=== PATIENT | male | born 1950 | race African-American/Black ===

== ENCOUNTER 2018-08-17 11:27 | Inpatient (IN) | payer OTHER ==
[2018-08-17 11:38] VITALS: BMI 22.4
--- NOTE | 2018-08-17 12:25 | PDOC ---
History of Present Illness - General Chief Complaint: Dialysis Shunt Problem Stated Complaint: SENT BY PCP Time Seen by Provider: 08/17/18 12:00 History Source: Patient Exam Limitations: No Limitations - History of Present Illness Initial Comments: 08/17/18 12:39 68 y/o male presents to the ED for evaluation of occluded LAVF. pt was due for HD today but went to Dr. thomas's office 1st where the ultrasound showed an occluded fistula. Pt states last HD was Friday and does urinate. pt has no complaints presently. Pt was sent to the ED by William for either a thrombectomy or a permacath placement Timing/Duration: unsure Associated Symptoms: reports: denies symptoms Past History - Travel Traveled outside of the country in the last 30 days: No Close contact w/someone who was outside of country & ill: No - Past Medical History Allergies/Adverse Reactions: Allergies Allergy/AdvReac Type Severity Reaction Status Date / Time No Known Allergies Allergy Verified 08/17/18 11:33 COPD: No Dialysis: Yes (ESRD (M,W,F)) HTN: Yes - Immunization History Immunization Up to Date: Yes - Suicide/Smoking/Psychosocial Hx Smoking History: Never smoked Information on smoking cessation initiated: No Hx Alcohol Use: No Drug/Substance Use Hx: No Patient Lives Alone: No Lives with/in: spouse/SO Review of Systems - Review of Systems Able to Perform ROS?: No Is the patient limited Swazi proficient: No Constitutional: No: Symptoms Reported HEENTM: No: Symptoms Reported Respiratory: No: Symptoms reported Cardiac (ROS): No: Symptoms Reported ABD/GI: No: Symptoms Reported : No: Symptoms Reported Musculoskeletal: No: Symptoms Reported Integumentary: Yes: Other (occluded left avf) Neurological: No: Symptoms reported Endocrine: No: Symptoms Reported Hematologic/Lymphatic: Yes: See HPI *Physical Exam - Vital Signs Last Vital Signs Temp Pulse Resp BP Pulse Ox 98.1 F 85 18 178/87 H 100 08/17/18 11:33 08/17/18 11:33 08/17/18 11:33 08/17/18 11:33 08/17/18 11:33 - Physical Exam General Appearance: Yes: Nourished, Appropriately Dressed. No: Apparent Distress HEENT: positive: EOMI, CARLOTTA, TMs Normal, Pharynx Normal. negative: Pale Conjunctivae Neck: positive: Supple Respiratory/Chest: positive: Lungs Clear, Normal Breath Sounds. negative: Respiratory Distress, Accessory Muscle Use Cardiovascular: positive: Regular Rhythm, Regular Rate. negative: Murmur Gastrointestinal/Abdominal: positive: Soft. negative: Tenderness Extremity: positive: Normal Capillary Refill, Normal Range of Motion. negative : Normal Inspection (noted mild diffuse edema over left inner forearm and incision with sutures to center. Left AVF to lower left bicep palpable thrill) Integumentary: positive: Normal Color, Warm, Moist Neurologic: positive: Motor Strength 5/5 (ambulatory) ED Treatment Course - LABORATORY CBC & Chemistry Diagram: 08/17/18 12:12 08/17/18 12:37 Medical Decision Making - Medical Decision Making 08/17/18 12:31 CC: occluded LAVF, sent by william for procedure. last HD friday, due today , pt otherwise asymptomatic. recently clotted a few ago and had a sx procedure to left forearm and was functioning until today Exam: + thrill to LAVF, incision to Left FA w/ mild edeam, no increased warmth or erythema Plan: labs, npo, contact william 08/17/18 13:02 Pt seen by vasc surgeon, william and will be placed on schedule for open thrombectomy vs permacath. Admitted to him Laboratory Tests 08/17/18 08/17/18 12:12 12:37 Hgb 9.5 L Hct 28.7 L PT with INR 12.60 INR 1.07 *DC/Admit/Observation/Transfer Diagnosis at time of Disposition: AV fistula occlusion - Discharge Dispostion Decision to Admit order: Yes - Referrals - Patient Instructions - Post Discharge Activity
[2018-08-17 13:08] LABS: BASO % 0.6 % (0-2.0); EOS % 3.7 % (0-4.5); HEMATOCRIT 28.7 % (35.4-49); HEMOGLOBIN 9.5 GM/dL (11.7-16.9); LYMPH % 22.1 % (8-40); MCHC 33.1 g/dl (32.0-35.9); MEAN CELL VOLUME 93.7 fl (80-96); MEAN PLT VOLUME 8.7 fl (7.5-11.1); MONO % 10.1 % (3.8-10.2); NEUT % 63.5 % (42.8-82.8); PLATELET COUNT 141 K/MM3 (134-434); RBC 3.06 M/mm3 (4.00-5.60); RDW 13.3 % (11.9-15.9)
--- NOTE | 2018-08-17 13:16 | HP ---
Satellite H - Chief Complaint History of Present Illness: 68 year old man ESRD on HD with left forearm fistula which is thrombosed. He had an outpatient procedure last week in the [facility] but access clotted again. History Source: Patient Limitations to Obtaining History: No Limitations - Past Medical History Allergies/Adverse Reactions: Allergies Allergy/AdvReac Type Severity Reaction Status Date / Time No Known Allergies Allergy Verified 08/17/18 11:33 Cardiovascular: Yes: HTN Renal/: Yes: Renal Failure, Hemodialysis - Current Medications Current Medications: Home Medications Medication Instructions Recorded Unobtainable 08/17/18 [facility] Physical Exam - Physical Examination Vital Signs: Vital Signs Period Temp Pulse Resp BP Sys/Thakur Pulse Ox Last 24 Hr 98.1 F 85 18 178/87 100 General Appearance: Well Nourished, Well Developed ENT: Clear Lung: Clear to auscultation Heart: Regular rate & rhythm Breasts: Discharge from Nipple Extremities: Other (Left arm fistula no thrill or bruit.) Satellite Impression/Plan - Impression/Plan Impression: Failed AV access. Operative Procedure: Attempt open thrombectomy. Possible Permacath placement.
[2018-08-17 13:29] LABS: INR 1.07 (0.83-1.09); PROTHROMBIN TIME (PATIENT) 12.6 SEC (9.7-13.0)
[2018-08-17 13:50] LABS: ALBUMIN 3.3 g/dl (3.4-5.0); ALK PHOS 238 U/L (45-117); ANION GAP 8 MMOL/L (8-16); BILIRUBIN,TOTAL 0.5 mg/dL (0.2-1); BLOOD UREA NITROGEN 67 mg/dL (7-18); CALCIUM 9.2 mg/dL (8.5-10.1); CHLORIDE 99 mmol/L (98-107); CO2 29 mmol/L (21-32); GLUCOSE,RANDOM 75 mg/dL (74-106); POTASSIUM 5.1 mmol/L (3.5-5.1); SGOT/AST 7 U/L (15-37); SGPT/ALT 9 U/L (13-61); SODIUM 136 mmol/L (136-145); TOT PROT 7.4 g/dl (6.4-8.2)
[2018-08-17 14:54] LABS: CREATININE 10.9 mg/dL (0.55-1.3)
[2018-08-17] MEDS ORDERED: ONDANSETRON 4 MG/2 ML VIAL IVPUSH PRN ×2 (16:12→22:32)
[2018-08-17] MEDS ORDERED: LABETALOL HCL 5 MG/1 ML (100MG/20 ML VIAL) IVPUSH ONE (16:12)
[2018-08-17] MEDS ORDERED: PROMETHAZINE HCL 25 MG/1 ML VIAL IVPUSH PRN ×2 (16:12→22:32)
[2018-08-17] MEDS ORDERED: SODIUM CHLORIDE 1,000 ML IV SCH ×3 (16:15→22:32)
[2018-08-17] MEDS ORDERED: PROPOFOL 20 ML ONE ×4 (16:19→18:14)
[2018-08-17] MEDS ORDERED: MIDAZOLAM HCL 2 MG/2 ML SINGLE DOSE VIAL ONE (16:19)
[2018-08-17] MEDS ORDERED: LIDOCAINE HCL 1%, 10 MG/ML (20ML VIAL) ONE (16:25)
[2018-08-17] MEDS ORDERED: LIDOCAINE HCL/PF 2% SDV 5ML VIAL ONE (16:30)
[2018-08-17] MEDS ORDERED: ceFAZolin SODIUM 1 GM VIAL ONE (16:31)
[2018-08-17] MEDS ORDERED: SODIUM CHLORIDE 0.9% P/F 10 ML VIAL IJ ONE (16:31)
[2018-08-17] MEDS ORDERED: HEPARIN NA (PORCINE) 5,000 UNITS/ML 1ML VIAL ONE ×2 (17:24→17:35)
[2018-08-17] MEDS ORDERED: LIDOCAINE HCL 1%, 10 MG/ML (20ML VIAL) INF ONE (18:18)
--- NOTE | 2018-08-17 19:13 | OP ---
Operative Note - Note: Operative Date: 08/17/18 Pre-Operative Diagnosis: Thrombosed AV graft left arm Operation: Open thrombectomy left arm AV graft. Placement permacath. venogram left arm and right jugular/innominate vein Findings: Thrombosed right arm AV graft with multiple stents in outflow vein Chronic central vein occlusion right innominate, jugular and subclavian. Implants: 23 cm Permacath Post-Operative Diagnosis: Same as Pre-op Surgeon: Arsalan Bowen Anesthesiologist/[facility] [place]: Medardo Patel Anesthesia: Fractional Estimated Blood Loss (mls): 50
[2018-08-17] MEDS ORDERED: ACETAMINOPHEN WITH CODEINE 300MG/30MG TABLET PO PRN (19:20)
[2018-08-17] MEDS: CARVEDILOL 12.5 MG TABLET (FP) PO SCH (22:44)
--- NOTE | 2018-08-18 07:54 | PN ---
Progress Note (short form) - Note Progress Note: surgery POD #1 Open thrombectomy left arm AV graft. Placement permacath. venogram left arm and right jugular/innominalte vein. Intraop findings: Thrombosed right arm AV graft with multiple stents in outflow vein Chronic central vein occlusion right innominate, jugular and subclavian. Patient seen and examined at bedside with no complaints. Patient is tolerating his diet and denies nay CP, SOB, N/V, fever or chills. Vital Signs Temp 98.3 F 08/18/18 07:10 Pulse 88 08/18/18 07:10 Resp 20 08/18/18 07:10 BP 179/93 H 08/18/18 07:10 Pulse Ox 97 08/18/18 05:00 Intake & Output 08/17/18 08/17/18 08/18/18 11:59 23:59 11:59 Intake Total 350 Output Total 25 Balance 325 Weight 156 lb 8.451 oz Intake: IV 350 Output: Estimated Blood Loss 25 Other: Voiding Method Urinal Urinal Height 5 ft 10 in Body Mass Index (BMI) 22.4 Weight Measurement Method Est/Stated by Patient CBC, BMP 08/17/18 12:12 08/17/18 12:37 PE: A&Ox3, NAD Unlabored resp on RA. Right chest wall permacath placed secured in good position with no active bleeding, surrounding tissue intact with no tracking erythema or edema. Left arm dressing c/d/i with surrounding tissue intact, some local edema, no evidence of d/c or active bleeding. no palpable thrill. no radial or ulnar pulse palpated, hand and fingers warm and well perfused, moving left wrist and digits without limitation or pain. <Sarahy Julian - Last Filed: 08/18/18 07:57> - Note Progress Note: Mr Lewis will need new fistula in left arm. He has a history of left sided central vein occlusion and will need to have venogram before new access is created. I will schedule outpatient venogram. <Arsalan Bowen - Last Filed: 08/18/18 12:42> Problem List - Problems (1) AV fistula occlusion Assessment/Plan: POD #1 attempted thrombectomy of left AVF, and Permacath placement, doing well. 1) Dialysis per renal via Permacath 2) OOB as tolerated 3) plan for permanent access pending Code(s): T82.898A - [facility] COMPLICATION OF VASCULAR PROSTH DEV/KALEY, INIT <Sarahy Julian - Last Filed: 08/18/18 07:57>
--- NOTE | 2018-08-18 08:01 | PN ---
Progress Note (short form) - Note Progress Note: RENAL 68 YEAR OLD WITH ESRD HTN DM HAS HAD ISSUES WITH CENTRAL THROMBOSIS HENCE LEFT ARM ACCESS KEEPS CLOTTING WAS ON PLAVIX FAILED THROMBECTOMY S/P RT PERMCATH HDTODAY ATMK11OC 3.5 HR K2 CA2.5 TARGET 2.5 PROCRIT 5000 DC HOME IF NEW ACCESS CANT BE DONE IN THIS ADMISSION MEDS REVIEWED DC FLUIDS
[2018-08-18] MEDS: SEVELAMER CARBONATE 800 MG TAB (FP) PO SCH ×3 (08:37→17:44)
[2018-08-18] MEDS ORDERED: EPOETIN ALFA 3,000 UNIT/1 ML ML SQ ONE (10:00)
[2018-08-18] MEDS ORDERED: EPOETIN ALFA 2,000 UNIT/1 ML VIAL SQ ONE (10:00)
[2018-08-18] MEDS ORDERED: PT OWN MED DRAWER 7, Y5N ONE (11:28)
[2018-08-18] MEDS: CARVEDILOL 12.5 MG TABLET (FP) PO SCH (14:15)
--- NOTE | 2018-08-18 14:32 | OP ---
DATE OF OPERATION: 08/17/2018 SURGEON: Arsalan Pate MD PROCEDURES: Open thrombectomy. Left arm arteriovenous graft. Venogram of the left upper extremity. Placement of Perma-Cath with venogram of the right jugular and subclavian veins. PREOPERATIVE DIAGNOSIS: Thrombosed arteriovenous graft, left arm. POSTOPERATIVE DIAGNOSIS: Thrombosed arteriovenous graft, left arm, with central vein occlusion of the right jugular and innominate vein. ANESTHESIA: Fractional. ANESTHESIOLOGIST: Medardo Patel MD OPERATIVE FINDINGS: There was a composite graft fistula of the left forearm with inflow from the brachial artery and outflow via the cephalic vein. The entire access was clotted. There was a stent extending from the distal forearm near the wrist back to the antecubital fossa which was kinked distally at the site of a sharp turn in the access. The proximal cephalic vein in the upper arm was patent and normal caliber. The right internal jugular vein was occluded. Branches of the vein were patent. Venography revealed occlusion of the vein with no reconstitution seen in the neck or chest. The subclavian vein also appeared to be occluded. OPERATIVE PROCEDURE: Following routine patient identification with side and site verification, intravenous sedation was established. The left arm was prepped with ChloraPrep. A timeout was performed. Lidocaine 1% was infiltrated in the proximal forearm over the palpable graft. Skin incision was made and carried through subcutaneous tissues using cautery for hemostasis. The graft was mobilized and secured with vessel loops. A transverse incision was made in the graft. A number-3 Shanice catheter was passed proximally and withdrawing with removal of thrombus and cheondoism of arterial flow. The graft was filled with heparin solution and was occluded with a vessel loop. Attempt to perform thrombectomy of the venous portion of the graft was unsuccessful due to the multiple stents in the outflow of the graft and the severe angulation distally. Due to the presence of continuous stenting from the graft venous anastomosis distally to the antecubital fossa, there was no access to perform any additional thrombectomy. Wire and catheter were passed through the occluded portion of the graft into the cephalic vein above the elbow and venography was performed which showed the vein was patent and would be acceptable for a new AV fistula. Based on this finding and the poor function of the current access, decision was made to terminate the procedure and plan a new AV access in the left arm. Therefore, the incision in the graft was closed with running suture of 6-0 Prolene and the proximal clamp removed. The wound was closed with 3-0 Vicryl subcutaneous sutures and skin tala. A sterile dressing was applied. The patient was then re-prepped and draped in the right neck and chest. Using real-time duplex imaging, the right neck was explored and there was evidence of old, partially-thrombosed jugular vein with multiple external venous branches. Lidocaine was infiltrated in the skin and a Micropuncture needle used to cannulate one of these large branches. A flexible wire was passed proximally and the needle exchanged for a 5-Peruvian catheter. Venography through the catheter revealed occlusion of the jugular vein at the thoracic outlet. A 7-Peruvian sheath was placed over a wire into the vein and then attempts to recannulate the occluded portion were made with wires and catheters without success. The sheath was removed and pressure applied to the neck until bleeding ceased. Under ultrasound guidance, the right subclavian vein was identified distally then was cannulated with a Micropuncture needle. Attempts to pass a wire proximally also met with resistance and contrast injection showed that this vein was occluded, as well. Using a Micropuncture needle, the subclavicular venous branches were cannulated and then a wire was able to be passed proximally into the superior vena cava. The 5-Peruvian catheter was placed over the wire. The wire was then exchanged for an angled-tip wire which was advanced through the right atrium into the inferior vena cava. With the aid of a catheter, a stiff wire was then exchanged. Additional Xylocaine was infiltrated in the chest wall and a stab wound made. A Perma-Cath was then advanced from chest incision to the infraclavicular site. The tract around the wire was dilated. Perma-Cath was then advanced over the wire through an introducer and the tip position in the right atrium. The introducer was peeled away, leaving the catheter in place. Each lumen was aspirated for blood and flushed with saline and heparin solution. The infraclavicular incision was closed with a subcutaneous suture of 3-0 Vicryl and the catheter was sutured to the skin at the exit site with 3-0 nylon. Sterile dressings were applied and the patient was taken to the recovery room for a chest x-ray. ARSALAN PATE M.D. [id number]
[2018-08-18 14:47] VITALS: PULSE 99
[2018-08-18 17:03] VITALS: BP 150/74; TEMP 98.1
[2018-08-19 13:13] LABS: HBSAG SCREEN Negative (Negative); HEP A AB, IGM Negative (Negative); HEP B CORE AB, TOT Negative (Negative)
== END 2018-08-18 18:48 | disposition home or self-care (01) | DRG 252 ==
LOC: JER 11:27 → JASU-SURG 12:25 → JASUSAT 12:25 → JSAMEDAYSX 19:16 → J8W 22:27
PROVIDERS: ADMIT Surgery; ATTEND Surgery
PROC: 05H533Z Insertion of Infusion Device into Right Subclavian Vein, Percutaneous Approach (ICD-10-PCS; 2018-08-17)
PROC: 02H633Z Insertion of Infusion Device into Right Atrium, Percutaneous Approach (ICD-10-PCS; 2018-08-17)
PROC: 03CY0ZZ Extirpation of Matter from Upper Artery, Open Approach (ICD-10-PCS; principal; 2018-08-17 15:15)
PROC: 057F0ZZ Dilation of Left Cephalic Vein, Open Approach (ICD-10-PCS; 2018-08-17 15:15)
DX: T82.868A Thrombosis due to vascular prosthetic devices, implants and grafts, initial encounter (principal); N18.6 End stage renal disease; I12.0 Hypertensive chronic kidney disease with stage 5 chronic kidney disease or end stage renal disease; Y83.8 Other surgical procedures as the cause of abnormal reaction of the patient, or of later complication, without mention of misadventure at the time of the procedure; Z99.2 Dependence on renal dialysis
CPT/HCPCS: 36415; 71045-TC-FY; 76000-TC-FY; 80053; 85025; 85610; 86704; 86706; 86708; 86803; 86850; 86900; 86901; 87340; 87389; 94760; 99284-25; J0885; J1644; J7030

== ENCOUNTER 2024-04-08 03:45 | Day surgery (SDC) | payer OTHER ==
[2024-04-08] MEDS ORDERED: LIDOCAINE HCL/PF 1% SDV 5ML VIAL ONE (07:45)
[2024-04-08 09:35] VITALS: RESP 16
[2024-04-08 09:38] VITALS: BMI 22.9
[2024-04-08 10:22] LABS: INR 1.22 (0.83-1.09); PROTHROMBIN TIME (PATIENT) 13.7 SEC (9.7-13.0)
[2024-04-08] MEDS ORDERED: MIDAZOLAM HCL 2 MG/2 ML SINGLE DOSE VIAL ONE (11:46)
[2024-04-08] MEDS: ceFAZolin SODIUM 1 GM VIAL IVPB ONE (11:50)
[2024-04-08] MEDS ORDERED: SUCCINYLCHOLINE CHLORIDE 200 MG/10 ML SYRINGE ONE (12:02)
[2024-04-08] MEDS ORDERED: PROPOFOL 20 ML ONE (12:02)
[2024-04-08] MEDS ORDERED: ROCURONIUM BROMIDE 50 MG/5 ML SYRINGE ONE (12:02)
[2024-04-08] MEDS: LIDOCAINE HCL 1%, 10 MG/ML (20ML VIAL) NR ONE (12:20)
[2024-04-08 13:11] VITALS: TEMP 97.7
[2024-04-08] MEDS ORDERED: ACETAMINOPHEN 325 MG TABLET (FP) ONE (13:28)
[2024-04-08] MEDS: ACETAMINOPHEN 325 MG TABLET (FP) PO PRN (13:29)
[2024-04-08 15:08] VITALS: BP 126/74; PULSE 92
== END 2024-04-08 15:11 | disposition home or self-care (01) ==
LOC: JASU-SURG 03:45
PROVIDERS: ATTEND Surgery
PROC: 037Y3DZ Dilation of Upper Artery with Intraluminal Device, Percutaneous Approach (ICD-10-PCS; principal; 2024-04-08 11:00)
DX: T82.511A Breakdown (mechanical) of surgically created arteriovenous shunt, initial encounter (principal); I12.0 Hypertensive chronic kidney disease with stage 5 chronic kidney disease or end stage renal disease; N18.6 End stage renal disease; Z99.2 Dependence on renal dialysis
CPT/HCPCS: 36903; C1874; 36415; 76000-TC-FY; 84132; 85610; C1769

== ENCOUNTER 2024-12-29 13:06 | Inpatient (IN) | payer OTHER ==
[2024-12-29] MEDS ORDERED: ACETAMINOPHEN INJECTION 100 ML ONE (14:14)
[2024-12-29] MEDS: ACETAMINOPHEN 1000 MG/100 ML BAG IVPB ONE (14:35)
[2024-12-29 14:53] LABS: EOSINOPHIL % 7.1 % (0.8-7.0); MCHC 31.7 g/dl (32.3-36.5); MEAN CELL VOLUME 100.0 fl (79.0-92.2); MEAN PLT VOLUME 11.3 fl (9.4-12.4); MONOCYTE % 9.3 % (5.3-12.2); RDW 13.9 % (12.2-16.6)
[2024-12-29 14:54] LABS: ABSOLUTE IMMATURE GRANULOCYTES 0.01 x10^3/uL (0.0-0.031); BASOPHILS # 0.03 x10^3/uL (0.01-0.08); EOSINOPHILS # 0.30 x10^3/uL (0.04-0.54); MONOCYTE # 0.39 x10^3/uL (0.30-0.82)
[2024-12-29] MEDS ORDERED: MORPHINE SULFATE 2 MG/ML SYRINGE ONE (14:57)
[2024-12-29 15:01] LABS: INR 1.22 (0.83-1.09); PROTHROMBIN TIME (PATIENT) 13.3 SEC (9.7-13.0)
[2024-12-29 15:04] LABS: ACTIVATED PTT 35.3 SECONDS (25.2-36.5)
[2024-12-29 15:14] LABS: GLUCOSE,RANDOM 101 mg/dL (74-106); TOT PROT 7.8 g/dl (6.4-8.2)
[2024-12-29 15:15] LABS: CO2 26 mmol/L (21-32)
[2024-12-29] MEDS: morphine CARPU-JECT 2 MG/1 ML DISP.SYRIN IVPUSH ONE (15:15)
[2024-12-29 15:17] LABS: ALK PHOS 460 U/L (40-150)
[2024-12-29 15:19] LABS: SGPT/ALT 13 U/L (0-55)
[2024-12-29 15:20] LABS: CREATININE 10.43 mg/dL (0.55-1.3); SGOT/AST 19 U/L (5-34)
[2024-12-29] MEDS ORDERED: HYDROmorphone HCL CARPU-JECT 2 MG/1 ML DISP.SYRIN IVPUSH PRN (17:46)
[2024-12-29] MEDS ORDERED: HYDROmorphone HCL CARPU-JECT 2 MG/1 ML DISP.SYRIN ONE (17:50)
[2024-12-29 18:22] LABS: HCV DIAGNOSTIC IN-HOUSE W/RFLX NON-REACTIVE (NONREACTIVE); HIV INTERPRETATION NEGATIVE (NEGATIVE)
[2024-12-29] MEDS: ACETAMINOPHEN 1000 MG/100 ML BAG IVPB PRN (20:55)
[2024-12-30] MEDS: morphine CARPU-JECT 2 MG/1 ML DISP.SYRIN IVPUSH PRN (04:13)
[2024-12-30] MEDS: ACETAMINOPHEN 1000 MG/100 ML BAG IVPB SCH ×2 (08:38→20:22)
[2024-12-30 09:35] LABS: ABSOLUTE IMMATURE GRANULOCYTES 0.01 x10^3/uL (0.0-0.031)
[2024-12-30 09:37] LABS: BASOPHILS # 0.03 x10^3/uL (0.01-0.08); EOSINOPHIL % 3.9 % (0.8-7.0); EOSINOPHILS # 0.19 x10^3/uL (0.04-0.54); IMMATURE PLATELET FRACTION # 3.20 x10^3/uL; MCHC 31.8 g/dl (32.3-36.5); MEAN CELL VOLUME 99.2 fl (79.0-92.2); MEAN PLT VOLUME 10.2 fl (9.4-12.4); MONOCYTE # 0.57 x10^3/uL (0.30-0.82); MONOCYTE % 11.6 % (5.3-12.2); RDW 13.7 % (12.2-16.6)
[2024-12-30 09:52] LABS: GLUCOSE,RANDOM 74 mg/dL (74-106)
[2024-12-30 09:54] LABS: CO2 26 mmol/L (21-32)
[2024-12-30 09:58] LABS: CREATININE 11.43 mg/dL (0.55-1.3)
[2024-12-30] MEDS: POLYETHYLENE GLYCOL (HEALTHYLAX) 3350 17 GM PACKET PO SCH (10:27)
[2024-12-30 10:30] LABS: HEPATITIS B SURF AG NON-MATERN NON-REACTIVE (NONREACTIVE)
[2024-12-30] MEDS: VERAPAMIL HCL 180 MG E.R. TABLET PO SCH (10:33)
[2024-12-30] MEDS ORDERED: LIDOCAINE HCL/PF 2% SDV 5ML VIAL ONE (11:25)
[2024-12-30] MEDS ORDERED: MIDAZOLAM HCL 2 MG/2 ML SINGLE DOSE VIAL ONE (11:25)
[2024-12-30] MEDS ORDERED: PROPOFOL 60 ML ONE (11:25)
[2024-12-30] MEDS ORDERED: ONDANSETRON 4 MG/2 ML VIAL IVPUSH PRN ×3 (12:04→15:10)
[2024-12-30] MEDS ORDERED: LIDOCAINE HCL 1%, 10 MG/ML (20ML VIAL) ONE (12:31)
[2024-12-30] MEDS ORDERED: HEPARIN NA (PORCINE) 5,000 UNITS/ML 1ML VIAL ONE (12:32)
[2024-12-30] MEDS: LIDOCAINE HCL 1%, 10 MG/ML (50 mL VIAL) INF ONE (12:55)
[2024-12-30] MEDS ORDERED: PHENYLEPHRINE HCL 10 MG/1 ML SINGLE DOSE VIAL ONE (13:08)
[2024-12-30] MEDS ORDERED: METOPROLOL TARTRATE 5 MG/5 ML VIAL ONE (13:15)
[2024-12-30] MEDS ORDERED: FLUMAZENIL 0.5 MG/5 ML VIAL ONE (13:26)
[2024-12-30] MEDS ORDERED: NALOXONE HCL 0.4 MG/ML VIAL ONE (13:50)
[2024-12-30] MEDS ORDERED: ACETAMINOPHEN INJECTION 100 ML ONE (14:18)
[2024-12-30] MEDS: ACETAMINOPHEN 1000 MG/100 ML BAG IVPB ONE (14:20)
[2024-12-30] MEDS ORDERED: SODIUM CHLORIDE 250 ML IV PRN (14:23)
[2024-12-30] MEDS: SACUBITRIL/VALSARTAN 24 MG-26 MG TABLET PO SCH (21:34)
[2024-12-30] MEDS: APIXABAN 2.5 MG TABLET PO SCH (21:35)
[2024-12-30] MEDS ORDERED: SODIUM CHLORIDE 250 ML IV STA (21:57)
[2024-12-31] MEDS: MINERAL OIL/PET HY-PHL TOPICAL OINTMENT 454 GM JAR TP SCH (01:37)
[2024-12-31 10:29] LABS: ABSOLUTE IMMATURE GRANULOCYTES 0.03 x10^3/uL (0.0-0.031); BASOPHILS # 0.04 x10^3/uL (0.01-0.08); EOSINOPHIL % 1.4 % (0.8-7.0); EOSINOPHILS # 0.11 x10^3/uL (0.04-0.54); MCHC 30.3 g/dl (32.3-36.5); MEAN CELL VOLUME 103.0 fl (79.0-92.2); MEAN PLT VOLUME 11.9 fl (9.4-12.4); MONOCYTE # 0.79 x10^3/uL (0.30-0.82); MONOCYTE % 9.8 % (5.3-12.2); RDW 14.1 % (12.2-16.6)
[2024-12-31 10:53] LABS: GLUCOSE,RANDOM 79 mg/dL (74-106)
[2024-12-31 10:54] LABS: TOT PROT 7.7 g/dl (6.4-8.2)
[2024-12-31 10:55] LABS: CO2 23 mmol/L (21-32)
[2024-12-31 10:57] LABS: ALK PHOS 441 U/L (40-150)
[2024-12-31 10:59] LABS: SGOT/AST 25 U/L (5-34); SGPT/ALT 12 U/L (0-55)
[2024-12-31 11:00] LABS: CREATININE 8.47 mg/dL (0.55-1.3)
[2024-12-31] MEDS: SODIUM ZIRCONIUM CYCLOSILICATE (LOKELMA) 5 GM PACKET PO SCH (11:00)
[2024-12-31] MEDS: ALLOPURINOL 100 MG TABLET (FP) PO SCH (11:01)
[2024-12-31] MEDS: POLYETHYLENE GLYCOL (HEALTHYLAX) 3350 17 GM PACKET PO SCH (11:01)
[2024-12-31] MEDS: VERAPAMIL HCL 180 MG E.R. TABLET PO SCH (11:01)
[2024-12-31] MEDS ORDERED: SODIUM CHLORIDE 250 ML IV PRN (16:44)
[2024-12-31] MEDS: morphine CARPU-JECT 2 MG/1 ML DISP.SYRIN IVPUSH PRN (23:16)
[2025-01-01 08:40] LABS: ABSOLUTE IMMATURE GRANULOCYTES 0.02 x10^3/uL (0.0-0.031); BASOPHILS # 0.03 x10^3/uL (0.01-0.08); EOSINOPHIL % 4.1 % (0.8-7.0); EOSINOPHILS # 0.23 x10^3/uL (0.04-0.54); MCHC 31.2 g/dl (32.3-36.5); MEAN CELL VOLUME 100.9 fl (79.0-92.2); MEAN PLT VOLUME 12.3 fl (9.4-12.4); MONOCYTE # 0.69 x10^3/uL (0.30-0.82); MONOCYTE % 12.2 % (5.3-12.2); RDW 14.0 % (12.2-16.6)
[2025-01-01 09:02] LABS: GLUCOSE,RANDOM 67 mg/dL (74-106); TOT PROT 6.9 g/dl (6.4-8.2)
[2025-01-01 09:03] LABS: CO2 26 mmol/L (21-32)
[2025-01-01 09:05] LABS: ALK PHOS 397 U/L (40-150)
[2025-01-01 09:07] LABS: SGOT/AST 18 U/L (5-34)
[2025-01-01 09:08] LABS: CREATININE 9.68 mg/dL (0.55-1.3)
[2025-01-01 09:14] LABS: SGPT/ALT < 6 U/L (0-55)
[2025-01-02] MEDS: ACETAMINOPHEN 500 MG TABLET (FP) PO ONE (05:59)
[2025-01-02] MEDS: guaiFENesin/D-METHORPHAN HB 10 ML UNIT-DOSE CUPS PO PRN (21:25)
[2025-01-03] MEDS: LIDOCAINE 5% TOPICAL PATCH TP SCH (10:05)
[2025-01-03] MEDS ORDERED: SODIUM CHLORIDE 250 ML IV PRN (13:20)
[2025-01-03 13:32] LABS: IMMATURE PLATELET FRACTION # 6.70 x10^3/uL; MCHC 31.8 g/dl (32.3-36.5); MEAN CELL VOLUME 99.7 fl (79.0-92.2); MEAN PLT VOLUME 10.9 fl (9.4-12.4); RDW 13.8 % (12.2-16.6)
[2025-01-03] MEDS: POLYETHYLENE GLYCOL (HEALTHYLAX) 3350 17 GM PACKET PO SCH (13:50)
[2025-01-03 13:52] LABS: GLUCOSE,RANDOM 86 mg/dL (74-106)
[2025-01-03 13:53] LABS: TOT PROT 6.9 g/dl (6.4-8.2)
[2025-01-03 13:54] LABS: CO2 29 mmol/L (21-32)
[2025-01-03 13:55] LABS: ALK PHOS 396 U/L (40-150)
[2025-01-03 13:58] LABS: CREATININE 9.24 mg/dL (0.55-1.3); SGOT/AST 15 U/L (5-34)
[2025-01-03 14:37] LABS: SGPT/ALT < 6 U/L (0-55)
[2025-01-03] MEDS: EPOETIN ALFA-EPBX 4,000 UNIT/ML VIAL SQ ONE (15:09)
[2025-01-03] MEDS: HEPARIN NA (PORCINE) 5,000 UNITS/ML 1ML VIAL IVPUSH ONE (15:09)
[2025-01-03] MEDS ORDERED: HEPARIN NA (PORCINE) 5,000 UNITS/ML 1ML VIAL SQ SCH (22:00)
[2025-01-03] MEDS: LIDOCAINE PATCH REMOVAL MC SCH (22:53)
[2025-01-04] MEDS: ACETAMINOPHEN 500 MG TABLET (FP) PO SCH (07:28)
[2025-01-04 10:14] LABS: ABSOLUTE IMMATURE GRANULOCYTES 0.01 x10^3/uL (0.0-0.031); BASOPHILS # 0.02 x10^3/uL (0.01-0.08); MEAN CELL VOLUME 102.6 fl (79.0-92.2); MONOCYTE # 0.44 x10^3/uL (0.30-0.82)
[2025-01-04 10:16] LABS: EOSINOPHIL % 9.0 % (0.8-7.0); EOSINOPHILS # 0.33 x10^3/uL (0.04-0.54); IMMATURE PLATELET FRACTION # 5.70 x10^3/uL; MCHC 31.1 g/dl (32.3-36.5); MEAN PLT VOLUME 11.0 fl (9.4-12.4); MONOCYTE % 12.0 % (5.3-12.2); RDW 13.8 % (12.2-16.6)
[2025-01-04] MEDS: SENNOSIDES 8.6MG TABLET (FP) PO SCH (21:04)
[2025-01-05] MEDS ORDERED: SODIUM CHLORIDE 250 ML IV PRN ×3 (07:45→16:11)
[2025-01-05 09:21] LABS: ABSOLUTE IMMATURE GRANULOCYTES 0.01 x10^3/uL (0.0-0.031); EOSINOPHIL % 9.3 % (0.8-7.0); EOSINOPHILS # 0.33 x10^3/uL (0.04-0.54); MEAN PLT VOLUME 11.9 fl (9.4-12.4)
[2025-01-05 09:23] LABS: BASOPHILS # 0.02 x10^3/uL (0.01-0.08); IMMATURE PLATELET FRACTION # 5.60 x10^3/uL; MCHC 31.5 g/dl (32.3-36.5); MEAN CELL VOLUME 101.5 fl (79.0-92.2); MONOCYTE # 0.41 x10^3/uL (0.30-0.82); MONOCYTE % 11.6 % (5.3-12.2); RDW 13.9 % (12.2-16.6)
[2025-01-05 09:26] LABS: INR 1.16 (0.83-1.09); PROTHROMBIN TIME (PATIENT) 12.8 SEC (9.7-13.0)
[2025-01-05 09:40] LABS: GLUCOSE,RANDOM 92 mg/dL (74-106); TOT PROT 7.0 g/dl (6.4-8.2)
[2025-01-05 09:41] LABS: CO2 29 mmol/L (21-32)
[2025-01-05 09:42] LABS: ALK PHOS 377 U/L (40-150)
[2025-01-05 09:45] LABS: CREATININE 6.23 mg/dL (0.55-1.3); SGOT/AST 16 U/L (5-34); SGPT/ALT < 6 U/L (0-55)
[2025-01-05] MEDS ORDERED: ROPIVACAINE HCL 0.5% 30ML VIAL ONE (12:55)
[2025-01-05] MEDS ORDERED: MIDAZOLAM HCL 2 MG/2 ML SINGLE DOSE VIAL ONE (12:56)
[2025-01-05] MEDS ORDERED: DEXAMETHASONE SOD PHOSPHATE 10 MG/1 ML VIAL ONE (12:59)
[2025-01-05] MEDS ORDERED: PROPOFOL 20 ML ONE (13:25)
[2025-01-05] MEDS ORDERED: METOPROLOL TARTRATE 5 MG/5 ML VIAL ONE (13:45)
[2025-01-05] MEDS ORDERED: ESMOLOL HCL 100,000 MCG/10 ML VIAL ONE (13:46)
[2025-01-05] MEDS ORDERED: LABETALOL HCL 20 MG/4 ML VIAL ONE ×2 (14:11)
[2025-01-05] MEDS ORDERED: guaiFENesin/D-METHORPHAN HB 10 ML UNIT-DOSE CUPS PO PRN (14:22)
[2025-01-05] MEDS ORDERED: morphine CARPU-JECT 2 MG/1 ML DISP.SYRIN IVPUSH PRN ×2 (14:22→16:11)
[2025-01-05] MEDS ORDERED: MAG HYDROX/AL HYDROX/SIMETH 30 ML UNIT-DOSE CUP PO PRN (15:35)
[2025-01-05] MEDS ORDERED: ONDANSETRON 4 MG/2 ML VIAL IVPUSH PRN ×2 (15:35→15:57)
[2025-01-05] MEDS ORDERED: NALOXONE HCL 0.4 MG/ML VIAL ONE ×2 (15:43)
[2025-01-05] MEDS ORDERED: LACTATED RINGERS SOLUTION 1,000 ML IV SCH ×2 (15:45→16:00)
[2025-01-05] MEDS ORDERED: ALBUTEROL SO4 0.083% IH SOL 2.5 MG/3 ML VIAL.NEB. NEB ONE (16:38)
[2025-01-05 16:49] LABS: RDW 14.1 % (12.2-16.6)
[2025-01-05 16:51] LABS: IMMATURE PLATELET FRACTION # 6.30 x10^3/uL; MCHC 30.3 g/dl (32.3-36.5); MEAN CELL VOLUME 104.2 fl (79.0-92.2); MEAN PLT VOLUME 10.5 fl (9.4-12.4)
[2025-01-05 17:18] LABS: GLUCOSE,RANDOM 120.0 mg/dL (74-106)
[2025-01-05 17:19] LABS: CO2 29.0 mmol/L (21-32)
[2025-01-05 17:24] LABS: CREATININE 4.57 mg/dL (0.55-1.3)
[2025-01-05] MEDS: ACETAMINOPHEN 1000 MG/100 ML BAG IVPB ONE (17:39)
[2025-01-05] MEDS ORDERED: ACETAMINOPHEN 500 MG TABLET (FP) PO SCH (18:00)
[2025-01-05] MEDS: CEFAZOLIN SODIUM 2 GM in DEXTROSE 5%-WATER 100 ML IVPB SCH (21:20)
[2025-01-05] MEDS: POLYETHYLENE GLYCOL (HEALTHYLAX) 3350 17 GM PACKET PO SCH (21:21)
[2025-01-05] MEDS: SACUBITRIL/VALSARTAN 24 MG-26 MG TABLET PO SCH (21:21)
[2025-01-05] MEDS: SENNOSIDES/DOCUSATE COMBO (SENNA PLUS) TABLET (UD) PO SCH (21:21)
[2025-01-05] MEDS: LIDOCAINE PATCH REMOVAL MC SCH (21:29)
[2025-01-05] MEDS ORDERED: SACUBITRIL/VALSARTAN 24 MG-26 MG TABLET PO SCH (22:00)
[2025-01-05] MEDS ORDERED: MINERAL OIL/PET HY-PHL TOPICAL OINTMENT 454 GM JAR TP SCH (22:00)
[2025-01-05] MEDS ORDERED: APIXABAN 2.5 MG TABLET PO SCH (22:00)
[2025-01-05] MEDS ORDERED: SENNOSIDES 8.6MG TABLET (FP) PO SCH (22:00)
[2025-01-05] MEDS ORDERED: POLYETHYLENE GLYCOL (HEALTHYLAX) 3350 17 GM PACKET PO SCH (22:00)
[2025-01-05] MEDS ORDERED: LIDOCAINE PATCH REMOVAL MC SCH ×4 (22:00)
[2025-01-05] MEDS: MINERAL OIL/PET HY-PHL TOPICAL OINTMENT 454 GM JAR TP SCH (22:18)
[2025-01-06] MEDS: ACETAMINOPHEN 500 MG TABLET (FP) PO SCH (00:52)
[2025-01-06] MEDS: MELATONIN 5 MG TABLETS PO SCH (02:33)
[2025-01-06] MEDS: guaiFENesin/D-METHORPHAN HB 10 ML UNIT-DOSE CUPS PO PRN (05:40)
[2025-01-06 07:37] LABS: IMMATURE PLATELET FRACTION # 6.60 x10^3/uL; MCHC 31.1 g/dl (32.3-36.5); MEAN CELL VOLUME 102.6 fl (79.0-92.2); MEAN PLT VOLUME 10.8 fl (9.4-12.4); RDW 13.8 % (12.2-16.6)
[2025-01-06] MEDS ORDERED: AMINO ACIDS/PROTEIN HYDROLYS 30 ML LIQUID.PKT PO SCH (08:00)
[2025-01-06 08:14] LABS: GLUCOSE,RANDOM 75 mg/dL (74-106); TOT PROT 6.8 g/dl (6.4-8.2)
[2025-01-06 08:15] LABS: CO2 27 mmol/L (21-32)
[2025-01-06 08:17] LABS: ALK PHOS 372 U/L (40-150)
[2025-01-06 08:19] LABS: SGOT/AST 17 U/L (5-34)
[2025-01-06 08:20] LABS: CREATININE 5.79 mg/dL (0.55-1.3)
[2025-01-06] MEDS: AMINO ACIDS/PROTEIN HYDROLYS 30 ML LIQUID.PKT PO SCH (08:29)
[2025-01-06 08:37] LABS: SGPT/ALT < 6 U/L (0-55)
[2025-01-06] MEDS ORDERED: ASPIRIN COATED 81 MG TABLET.EC PO SCH (10:00)
[2025-01-06] MEDS ORDERED: SODIUM ZIRCONIUM CYCLOSILICATE (LOKELMA) 5 GM PACKET PO SCH (10:00)
[2025-01-06] MEDS ORDERED: ALLOPURINOL 100 MG TABLET (FP) PO SCH (10:00)
[2025-01-06] MEDS ORDERED: LIDOCAINE 5% TOPICAL PATCH TP SCH (10:00)
[2025-01-06] MEDS: SODIUM ZIRCONIUM CYCLOSILICATE (LOKELMA) 5 GM PACKET PO SCH (10:06)
[2025-01-06] MEDS: PANTOPRAZOLE 40 MG TABLET PO SCH (10:07)
[2025-01-06] MEDS: MULTIVITAMINS (DAILY MVI) TABLET (FP) PO SCH (10:08)
[2025-01-06] MEDS: ALLOPURINOL 100 MG TABLET (FP) PO SCH (10:08)
[2025-01-06] MEDS: LIDOCAINE 5% TOPICAL PATCH TP SCH (10:08)
[2025-01-06] MEDS: LEVALBUTEROL HCL 0.31 MG/3 ML VIAL.NEB IH SCH (14:30)
[2025-01-06] MEDS: ACETAMINOPHEN 500 MG TABLET (FP) PO ONE (15:58)
[2025-01-06] MEDS: BENZOCAINE/MENTH/CETYLPYRD CL 1 EACH LOZENGE MM PRN (22:52)
[2025-01-07 06:47] LABS: ABSOLUTE IMMATURE GRANULOCYTES 0.03 x10^3/uL (0.0-0.031); BASOPHILS # 0.02 x10^3/uL (0.01-0.08); EOSINOPHIL % 4.7 % (0.8-7.0); EOSINOPHILS # 0.22 x10^3/uL (0.04-0.54); MCHC 31.0 g/dl (32.3-36.5); MEAN CELL VOLUME 101.7 fl (79.0-92.2); MEAN PLT VOLUME 11.3 fl (9.4-12.4); MONOCYTE # 0.63 x10^3/uL (0.30-0.82); MONOCYTE % 13.5 % (5.3-12.2); RDW 14.3 % (12.2-16.6)
[2025-01-07 07:11] LABS: GLUCOSE,RANDOM 72 mg/dL (74-106); TOT PROT 6.5 g/dl (6.4-8.2)
[2025-01-07 07:13] LABS: CO2 26 mmol/L (21-32)
[2025-01-07 07:14] LABS: ALK PHOS 341 U/L (40-150)
[2025-01-07 07:17] LABS: CREATININE 7.23 mg/dL (0.55-1.3); SGOT/AST 15 U/L (5-34); SGPT/ALT < 6 U/L (0-55)
[2025-01-07] MEDS ORDERED: DEXTROSE 50%-WATER 25 GM/50 ML DISP.SYRIN IVPUSH PRN ×2 (08:00→18:02)
[2025-01-07] MEDS ORDERED: SODIUM CHLORIDE 250 ML IV PRN (09:05)
[2025-01-07] MEDS ORDERED: APIXABAN 2.5 MG TABLET PO SCH (10:00)
[2025-01-07] MEDS: EPOETIN ALFA-EPBX 10,000 UNIT/ML VIAL SQ ONE (12:13)
[2025-01-07] MEDS ORDERED: MAG HYDROX/AL HYDROX/SIMETH 30 ML UNIT-DOSE CUP PO PRN (18:02)
[2025-01-07] MEDS ORDERED: ONDANSETRON 4 MG/2 ML VIAL IVPUSH PRN (18:02)
[2025-01-07] MEDS: LEVALBUTEROL HCL 0.31 MG/3 ML VIAL.NEB IH SCH (19:41)
[2025-01-07] MEDS: SACUBITRIL/VALSARTAN 24 MG-26 MG TABLET PO SCH (21:51)
[2025-01-07] MEDS: SENNOSIDES/DOCUSATE COMBO (SENNA PLUS) TABLET (UD) PO SCH (21:52)
[2025-01-07] MEDS: POLYETHYLENE GLYCOL (HEALTHYLAX) 3350 17 GM PACKET PO SCH (21:52)
[2025-01-07] MEDS: MIDODRINE HCL 5 MG TABLET PO ONE (21:55)
[2025-01-07] MEDS: APIXABAN 2.5 MG TABLET PO SCH (21:56)
[2025-01-07] MEDS: MELATONIN 5 MG TABLETS PO SCH (21:56)
[2025-01-07] MEDS: MINERAL OIL/PET HY-PHL TOPICAL OINTMENT 454 GM JAR TP SCH (21:59)
[2025-01-07] MEDS: LIDOCAINE PATCH REMOVAL MC SCH (21:59)
[2025-01-08] MEDS: ACETAMINOPHEN 500 MG TABLET (FP) PO SCH (00:02)
[2025-01-08] MEDS: morphine CARPU-JECT 2 MG/1 ML DISP.SYRIN IVPUSH PRN (04:19)
[2025-01-08 08:44] LABS: ABSOLUTE IMMATURE GRANULOCYTES 0.05 x10^3/uL (0.0-0.031); BASOPHILS # 0.02 x10^3/uL (0.01-0.08); EOSINOPHILS # 0.36 x10^3/uL (0.04-0.54); RDW 14.3 % (12.2-16.6)
[2025-01-08 08:46] LABS: EOSINOPHIL % 7.3 % (0.8-7.0); IMMATURE PLATELET FRACTION # 4.20 x10^3/uL; MCHC 31.2 g/dl (32.3-36.5); MEAN CELL VOLUME 101.0 fl (79.0-92.2); MEAN PLT VOLUME 10.2 fl (9.4-12.4); MONOCYTE # 0.71 x10^3/uL (0.30-0.82); MONOCYTE % 14.3 % (5.3-12.2)
[2025-01-08 09:08] LABS: GLUCOSE,RANDOM 75 mg/dL (74-106); TOT PROT 6.6 g/dl (6.4-8.2)
[2025-01-08 09:09] LABS: CO2 28 mmol/L (21-32)
[2025-01-08 09:11] LABS: ALK PHOS 335 U/L (40-150)
[2025-01-08 09:13] LABS: SGOT/AST 15 U/L (5-34); SGPT/ALT < 6 U/L (0-55)
[2025-01-08 09:14] LABS: CREATININE 5.42 mg/dL (0.55-1.3)
[2025-01-08] MEDS: MULTIVITAMINS (DAILY MVI) TABLET (FP) PO SCH (09:59)
[2025-01-08] MEDS: PANTOPRAZOLE 40 MG TABLET PO SCH (09:59)
[2025-01-08] MEDS: AMINO ACIDS/PROTEIN HYDROLYS 30 ML LIQUID.PKT PO SCH (09:59)
[2025-01-08] MEDS: ALLOPURINOL 100 MG TABLET (FP) PO SCH (09:59)
[2025-01-08] MEDS: LIDOCAINE 5% TOPICAL PATCH TP SCH (10:00)
[2025-01-08] MEDS: ACETAMINOPHEN 500 MG TABLET (FP) PO PRN (13:27)
[2025-01-08] MEDS: SODIUM CHLORIDE FOR INHALATION 3 ML VIAL.NEB IH SCH (19:48)
[2025-01-08] MEDS ORDERED: MIDODRINE HCL 5 MG TABLET PO ONE (21:42)
[2025-01-09] MEDS: guaiFENesin/D-METHORPHAN HB 10 ML UNIT-DOSE CUPS PO PRN (01:48)
[2025-01-09] MEDS: BENZOCAINE/MENTH/CETYLPYRD CL 1 EACH LOZENGE MM PRN (04:39)
[2025-01-09 10:10] LABS: GLUCOSE,RANDOM 101.0 mg/dL (74-106)
[2025-01-09 10:11] LABS: CO2 27.0 mmol/L (21-32)
[2025-01-09 10:15] LABS: CREATININE 7.21 mg/dL (0.55-1.3)
[2025-01-09 14:53] VITALS: BMI 22.4
[2025-01-10] MEDS ORDERED: SODIUM CHLORIDE 250 ML IV PRN (07:44)
[2025-01-10] MEDS: EPOETIN ALFA-EPBX 4,000 UNIT/ML VIAL SQ ONE (15:14)
[2025-01-11 15:35] VITALS: BP 129/65; PULSE 113; RESP 20; TEMP 97.7
== END 2025-01-11 16:04 | DRG 252 ==
LOC: JER 13:06 → JERBED 17:31 → J5S 18:28 → J4W 01-05 17:53 → J5S 01-07 17:20
PROVIDERS: ADMIT Internal Medicine
PROC: 03763ZZ Dilation of Left Axillary Artery, Percutaneous Approach (ICD-10-PCS; 2024-12-30)
PROC: 0PSC06Z Reposition Right Humeral Head with Intramedullary Internal Fixation Device, Open Approach (ICD-10-PCS; 2024-12-30)
PROC: 03C63ZZ Extirpation of Matter from Left Axillary Artery, Percutaneous Approach (ICD-10-PCS; principal; 2024-12-30 11:30)
DX: T82.868A Thrombosis due to vascular prosthetic devices, implants and grafts, initial encounter (principal); N18.6 End stage renal disease; S42.201A Unspecified fracture of upper end of right humerus, initial encounter for closed fracture; I12.0 Hypertensive chronic kidney disease with stage 5 chronic kidney disease or end stage renal disease; Y83.8 Other surgical procedures as the cause of abnormal reaction of the patient, or of later complication, without mention of misadventure at the time of the procedure; I48.91 Unspecified atrial fibrillation; E04.2 Nontoxic multinodular goiter; M10.9 Gout, unspecified; K80.80 Other cholelithiasis without obstruction; I27.20 Pulmonary hypertension, unspecified; E87.5 Hyperkalemia; W18.30XA Fall on same level, unspecified, initial encounter; Y93.9 Activity, unspecified; Y92.009 Unspecified place in unspecified non-institutional (private) residence as the place of occurrence of the external cause; Y99.9 Unspecified external cause status; Z99.2 Dependence on renal dialysis
CPT/HCPCS: 36415; 70450-TC; 71045-TC-FY; 71250-TC; 72125-TC; 72170-TC-FY; 73030-TC-RT-FY; 73200-TC-RT; 73502-TC-RT-FY; 74176-TC; 76000-TC-FY; 80048; 80053; 80061; 82962; 83036; 83735; 84100; 84439; 84443; 85025; 85027; 85610; 85730; 86704; 86803; 86850; 86900; 86901; 87340; 87389; 87517; 93005; 93010; 93306-TC; 94760; 97116-GP; 97162-GP; 99285-25; C1713; C1757; J1100; Q5106